=== PATIENT | female | born 1945 | race Caucasian/White ===

== ENCOUNTER → 2017-02-26 | Outpatient (CLI) | payer MEDICARE, OTHER ==
[~2017-02-26] MED LIST: ACET-2930 PO; CALC-43 PO; CHOL200026 PO; CYCL-83 PO; DOCU-168 PO; FLUD0.1T10 PO; HYDR5TAB PO; LEVO50TA69 PO; MELO-31 PO; MULT-635 PO
--- NOTE | 2017-02-26 15:23 | DI ---
Indication: ITS.REASON: R31.21 Asymptomatic microscopic hematuria PROCEDURE: CT RENAL W/O CONTRAST: Encounter: Initial Comparison: Renal ultrasound dated November 16, 2016 Technique: Axial CT images were performed through the abdomen and pelvis without intravenous contrast. Coronal and sagittal two-dimensional reformats. Automated Exposure Control and Iterative Reconstruction dose reducing techniques were utilized. Findings: The lung bases are clear. Multiple low-attenuation foci within the liver measuring fluid attenuation consistent with benign cysts. No contour deforming liver mass or bile duct dilatation seen on this noncontrast study. The gallbladder appears normal. The spleen, pancreas and adrenal glands are within normal limits. No abdominal or pelvic lymphadenopathy. The kidneys appear normal. No hydronephrosis or stone disease. No ureteral stones. Bladder is normal. Uterus is unremarkable. No free fluid. Sigmoid colonic diverticulosis without acute diverticulitis. No bowel obstruction. The appendix is normal. Bone windows show degenerative change and scoliosis in the spine. Impression: No nephrolithiasis or clear etiology for the patient's hematuria. Hematuria protocol CT could be performed for further evaluation as clinically indicated. .
== END ==
LOC: IMA 14:23
PROVIDERS: ATTEND Family Medicine
DX: R31.21 Asymptomatic microscopic hematuria (principal)